=== PATIENT | male | born 1990 | race Caucasian/White ===

== ENCOUNTER 2023-08-01 04:04 | Emergency (ER) | payer OTHER ==
[2023-08-01 04:48] VITALS: BP 125/94; PULSE 115; RESP 16; TEMP 97.1; BMI 25.8
[2023-08-01] MEDS: DIPHTH,PERTUSS(ACELL),TET 0.5 ML DISP.SYRIN IM ONE (05:47)
[2023-08-01 05:58] LABS: BASO % 0.7 % (0-2.0); EOS % 1.6 % (0-4.5); HEMATOCRIT 53.8 % (35.4-49); HEMOGLOBIN 17.8 GM/dL (11.7-16.9); LYMPH % 31.1 % (8-40); MCH 30.5 pg (25.7-33.7); MCHC 33.1 g/dl (32.0-35.9); MEAN CELL VOLUME 92.1 fl (80-96); MEAN PLT VOLUME 7.8 fl (7.5-11.1); MONO % 9.6 % (3.8-10.2); PLATELET COUNT 298 10^3/uL (134-434); RBC 5.84 M/mm3 (4.00-5.60); RDW 13.6 % (11.9-15.9); WHITE BLOOD COUNT 4.8 K/mm3 (4.0-10.0)
[2023-08-01 06:11] LABS: POTASSIUM 4.7 mmol/L (3.5-5.1)
[2023-08-01 06:13] LABS: CALCIUM 9.2 mg/dL (8.5-10.1)
[2023-08-01 06:14] LABS: ALBUMIN 4.4 g/dl (3.4-5.0)
[2023-08-01 06:17] LABS: CREATININE 0.8 mg/dL (0.55-1.3)
[2023-08-01 06:18] LABS: BILIRUBIN,TOTAL 0.5 mg/dL (0.2-1); TOT PROT 8.7 g/dl (6.4-8.2)
== END 2023-08-01 09:39 | disposition home or self-care (01) ==
LOC: JER 04:04
PROC: 3E0234Z Introduction of Serum, Toxoid and Vaccine into Muscle, Percutaneous Approach (ICD-10-PCS; principal; 2023-08-01)
DX: S01.81XA Laceration without foreign body of other part of head, initial encounter (principal); F10.929 Alcohol use, unspecified with intoxication, unspecified; W18.30XA Fall on same level, unspecified, initial encounter
CPT/HCPCS: 36415; 70450-TC; 70486-TC; 72125-TC; 80053; 80307; 85025; 90471; 90715; 99284-25